=== PATIENT | female | born 1970 | race Caucasian/White ===

== ENCOUNTER 2021-02-15 10:25 | Emergency (ER) | payer OTHER ==
[~2021-02-15] VITALS: Ht 147.3 cm; Wt 118.4 kg
[~2021-02-15 10:25] MED LIST: AMLODIPINE BESYL5 MG PO; ASPIR-LOW81 MG PO; KEFLEX500 MG PO; LISINOPRIL10 MG PO; SPIRONOLACTONE50 MG
[2021-02-15] MEDS ORDERED: MAGNESIUM OXID400 M1 PO (11:01)
[2021-02-15] MEDS ORDERED: BACTRIM DS TAB1 EACH PO (14:03)
--- NOTE | 2021-02-15 15:56 | EKG ---
[facility] [address] [facility] [place], [place] [address] Signed Normal sinus rhythm Normal ECG Confirmed by DEJUAN DALY MD ([id number]) on 02/15/2021 3:56:25 PM Electronically Signed By: DEJUAN DALY MD 02/15/21 1556 PATIENT NAME: AHN BETINA BOJORQUEZ Electrocardiogram DATE OF : 68 PHYSICIAN: DEJUAN DALY MD REPORT #: [id number] REPORT IS CONFIDENTIAL AND NOT TO BE RELEASED WITHOUT AUTHORIZATION
== END 2021-02-15 14:19 | disposition home or self-care (01) ==
LOC: ED 10:25
DX: G43.809 Other migraine, not intractable, without status migrainosus (principal); N39.0 Urinary tract infection, site not specified; I12.9 Hypertensive chronic kidney disease with stage 1 through stage 4 chronic kidney disease, or unspecified chronic kidney disease; N18.30 Chronic kidney disease, stage 3 unspecified; Z88.5 Allergy status to narcotic agent; Z91.018 Allergy to other foods; Z79.899 Other long term (current) drug therapy
CPT/HCPCS: 70450; 71045; 80053; 81001; 84484; 85025; 87077; 87088; 87186; 93005; 93010; 96374; 96375; 99284-25; J0780; J1200; J7030

== ENCOUNTER 2023-05-08 01:25 | Emergency (ER) | payer OTHER ==
[~2023-05-08] VITALS: Ht 147.3 cm; Wt 118.4 kg
[~2023-05-08 01:25] MED LIST changes: +BACTRIM DS TAB1 EACH PO; +MAGNESIUM OXID400 M1 PO
[2023-05-08 02:21] LABS: HEMATOCRIT 41.9 % (35.0-50.0); HEMOGLOBIN 13.5 g/dL (12.0-18.0); MCH 27.1 (27-36); MCHC 32.2 g/dl (30-36); MCV 84.3 fl (81-99); PLATELET COUNT 237 K/uL (140-440); RBC 4.97 M/ul (4.3-5.7); RDW 15.1 (10.5-15.0)
[2023-05-08 02:41] LABS: BANDS, MANUAL DIFF 23; EOSINOPHILS, MANUAL DIFF 1; LYMPHOCYTES, MANUAL DIFF 34; MONOCYTES, MANUAL DIFF 1; NEUTROPHILS, MANUAL DIFF 41
[2023-05-08 02:43] LABS: ALBUMIN 3.1 g/dL (3.4-5.0); ALBUMIN/GLOBULIN RATIO 0.76 (1.1-2.4); ANION GAP 22.2 (7-21); BILIRUBIN, TOTAL 1.2 ng/dL (0.2-1.0); BUN/CREATININE RATIO 14.63 (6.0-28.6); CALCIUM 8.6 mg/dL (8.5-10.1); CREATININE, SERUM 1.64 mg/dL (0.55-1.02); MAGNESIUM 1.7 mg/dL (1.8-2.4); POTASSIUM 3.2 mmol/L (3.5-5.1); PROTEIN, TOTAL 7.2 g/dL (6.4-8.2)
[2023-05-08 03:09] LABS: BASE EXCESS, BLOOD GAS -1.2 mmol/L (-2-2); HCO3, BLOOD GAS 23.8 mmol/L (22-26); O2 SATURATION, BLOOD GAS 98.1 % (95.0-100.0); PH, BLOOD GAS 7.38 (7.35-7.45); PO2, BLOOD GAS 97 mmHg (80-100)
[2023-05-08 03:10] LABS: OXYGEN RECEIVED, BLOOD GAS NOT STATED
[2023-05-08 03:33] LABS: BASE EXCESS, BLOOD GAS -1.3 mmol/L (-2-2); HCO3, BLOOD GAS 23.5 mmol/L (22-26); O2 SATURATION, BLOOD GAS 98.9 % (95.0-100.0); OXYGEN RECEIVED, BLOOD GAS NOT STATED; PCO2, BLOOD GAS 39.1 mmHg (35-45); PH, BLOOD GAS 7.39 (7.35-7.45); PO2, BLOOD GAS 108 mmHg (80-100); TOTAL CO2, BLOOD GAS 24.7
[2023-05-08 03:53] LABS: BILIRUBIN, URINE NEGATIVE (negative); BLOOD/HGB, URINE MODERATE (Negative); KETONE, URINE NEGATIVE (Negative); LEUK ESTERASE, URINE NEGATIVE (negative); NITRITE, URINE NEGATIVE (negative)
[2023-05-08 04:00] LABS: EPITHELIAL CELLS, URINE SQUAMOUS 1+ /lpf (0-1+)
[2023-05-08 04:01] LABS: BACTERIA, URINE 3+ /hpf (negative); CRYSTALS, URINE NONE SEEN (0-1+); RED BLOOD CELLS, URINE >50 /hpf (0-5)
[2023-05-08 04:02] LABS: CASTS, URINE NONE SEEN \\lpf; REFLEX CULTURE, URINE No (No)
[2023-05-08 07:25] VITALS: BP 102/78
--- NOTE | 2023-05-09 08:01 | EKG ---
[facility] [address] [facility] [place] [address] Signed Undetermined rhythm Left ventricular hypertrophy with repolarization abnormality ( [place] product ) Abnormal ECG When compared with ECG of 15-FEB-2021 11:26, Current undetermined rhythm precludes rhythm comparison, needs review QRS duration has increased ST now depressed in Inferior leads ST now depressed in Lateral leads T wave inversion now evident in Inferior leads T wave inversion now evident in Lateral leads Confirmed by TAMANNA COLMENARES MD ([id number]) on 05/09/2023 8:01:35 AM Electronically Signed By: TAMANNA COLMENARES 05/09/23 0801 PATIENT NAME: BETINA VELEZ Electrocardiogram DATE OF : 68 PHYSICIAN: TAMANNA COLMENARES REPORT #: [id number] REPORT IS CONFIDENTIAL AND NOT TO BE RELEASED WITHOUT AUTHORIZATION
== END 2023-05-08 07:25 | disposition short-term general hospital (02) ==
LOC: ED 01:25
PROVIDERS: Internal Medicine
DX: I46.9 Cardiac arrest, cause unspecified (principal); I12.9 Hypertensive chronic kidney disease with stage 1 through stage 4 chronic kidney disease, or unspecified chronic kidney disease; N18.30 Chronic kidney disease, stage 3 unspecified; Z91.018 Allergy to other foods; Z88.5 Allergy status to narcotic agent; Z79.899 Other long term (current) drug therapy; Z20.822 Contact with and (suspected) exposure to COVID-19
CPT/HCPCS: 36415; 36600; 70450; 71045; 80053; 81001; 82803; 83605; 83735; 84484; 85025; 85379; 85610; 85730; 87040; 93005; 93010; 94002; C9113; J0696; J2704; J2930; J3010; J3475; J3480; U0002

== ENCOUNTER 2025-05-15 05:30 | Day surgery (SDC) | payer OTHER ==
[~2025-05-15] VITALS: Ht 147.3 cm; Wt 119.0 kg
[~2025-05-15 05:30] MED LIST changes: +DAPAGLIFLOZIN10 MG PO; +ENDOCET 5-3251 EACH PO; +ENTRESTO 97 MG1 EACH PO; +INDAPAMIDE1.25 MG PO; +LACTATED RINGER'S 1,000 ML IV SCH; +ONDANSETRON ODT8 MG PO; +SPIRONOLACTONE25 MG PO; +TRAMADOL HCL50 MG PO
[2025-05-15 06:05] VITALS: BP 143/88
[2025-05-15] MEDS ORDERED: MIDAZOLAM HCL 2 MG/2 ML VIAL ONE (06:12)
[2025-05-15] MEDS ORDERED: CEFAZOLIN SODIUM 2 GM/20 ML SYR IV SCH (07:00)
[2025-05-15] MEDS ORDERED: LIDOCAINE HCL 1% 5 ML SDV INJ ONE (07:00)
[2025-05-15] MEDS ORDERED: IBLOOD GLUCOSE TEST STRIP 1 EA TEST VI PRN (07:00)
[2025-05-15] MEDS ORDERED: TRANEXAMIC ACID IN NACL,ISO-OS 1,000 MG/100 ML PIGGYBACK IV SCH (07:00)
[2025-05-15 07:21] LABS: GLOMERULAR FILTRATION RATE,EST 41.0 mL/min (>60); UREA NITROGEN 28.0 mg/dL (7-18)
--- NOTE | 2025-05-15 07:28 | NUR ---
0725- RECIEVED RESULTS FOR REPEAT LABS REQUESTED BY BAUTISTA DUE TO POTASSIUM OF 3.2 (L). REPEAT LAB DRAWN THIS MORNING SHOWED POTASSIUM 3.4 AND GFR 41. AND MYKEL MADE AWARE.
[2025-05-15] MEDS ORDERED: TRAMADOL HCL 50 MG TAB PO PRN (08:00)
[2025-05-15] MEDS ORDERED: Ropivacaine HCl 0.5% 30 ML VIAL ONE (08:38)
[2025-05-15] MEDS ORDERED: DULOXETINE HCL 30 MG CAP PO SCH (09:00)
[2025-05-15] MEDS ORDERED: ACETAMINOPHEN 1,000 MG/100 ML VIAL IV PRN (09:45)
[2025-05-15] MEDS ORDERED: TRAMADOL HCL50 MG PO (09:51)
--- NOTE | 2025-05-15 09:58 | NUR ---
05/15/25 0958 Sushila Wood 0946: PT ARRIVES TO PACU WITH ORAL AIRWAY IN PLACE. SHE IS NON AROUSAL TO STIMULI. REPROT RECIEVED FROM SUMMER COUNSELOR AND WINDOW CUTTER. [place] 0952: PT AROUSES ENOUGH TO REMOVAL ORAL AIRWAY.
[2025-05-15 10:36] VITALS: BP 108/75
--- NOTE | 2025-05-15 10:44 | NUR ---
1033- REVIEVED REPORT FROM [facility]. PT RECIEVED 900ML FLUIDS, 100 EBL. NO PAIN MEDS GIVEN IN PACU. PT DID NOT REPORT PAIN IN PACU. ICE MAN PACK IN PLACE ON ARM. 1040- PT HAS HAD NO COMPLAINT OF PAIN, NAUSEA, OR DIFFICULTY BREATHING. VITALS NOTED. ASSESSED SURGICAL SITE AND IS NOTED. ICE MAN REAPPLIED AFTER ASSESSMENT OF SITE. NUMBNESS IN RIGHT ARM DUE TO NERVE BLOCK FOR PAIN MANAGEMENT. PT UNABLE TO FEEL SENSATION AND HAS NO MOBILITY OF R ARM UPON ASSESSMENT. 1050- PT BROUGHT SNACKS, WATER, AND IN POSITON OF COMFORT. DISCUSSED REQUIREMENTS OF DC AND PT VERBALIED UNDERSTANDING. CALL LIGHT IN REACH, SIDE RAILS UP. PT INFORMED TO CALL FOR ASSISTANCE WHEN READY TO URINATE OR ANY OTHER NEEDS.
[2025-05-15] MEDS ORDERED: NALOXONE HCL 0.4 MG SYR IV PRN (11:30)
[2025-05-15 12:00] VITALS: BP 131/56
--- NOTE | 2025-05-15 12:01 | NUR ---
1150- PT IN POSTION OF COMFORT WITHOUT ANY COMPLAINTS AT THIS TIME. DRESSING WAS VISUALLY ASSESSED, CLEAN DRY, INTACT. ICE MAN STILL ATTACHED TO PT ARM AND TOLLERATING WELL. PAIN MED GIVEN PER PT REQUEST, SEE EMAR. DISCHARGE INFORMATION REVIEWED AND ASKED PT IF READY TO TRY TO URINATE.
[2025-05-15] MEDS ORDERED: DULOXETINE HCL 30 MG CAP PO ONE (12:45)
[2025-05-15 12:48] VITALS: BP 11/58
--- NOTE | 2025-05-15 12:58 | NUR ---
1238- CONTACTED [facility] FOR CLARIFICATION ON CYMBALTA. MISSED DOSE PER EMAR DUE TO PT BEING AWAY FROM DS. DOSE GIVEN PER ORDERS AND CLINIC SENT PRESCRIPTION TO PHARMACY- PER [facility]ARTINE PLAZA. 1240- PT SITTING UP EATING JELLO. DENIES NEED TO VOID. NEW MED GIVEN PER EMAR, PT EDUCATION PROVIDED. PT IN POSTION OF COMFORT, WARM BLANKETS PROVIDED PER REQUEST, CALL LIGHT IN REACH.
[2025-05-15 13:40] VITALS: BP 124/69
--- NOTE | 2025-05-15 14:05 | NUR ---
1320- PT IS UP WITH ANOTHER NURSE TO VOID. PT IS ABLE TO VOID 400ML OF URINE AND RETURNS TO ROOM WITH NO ISSUES. 1356- VITAL SIGNS OBTAINED. CRYOCUFF IS FILLED WITH ICE. IV REMOVED. ALL QUESTIONS AND CONCERNS ANSWERED. PT IS ASSISTED IN GETTING DRESSED AND PUTTING ARM IN SLING. MOTHER OF PT HAS ALL BELONGINGS. PT IS ABLE TO AMBULATE TO WHEELCHAIR WITH NO ISSUES. PT DC'S FROM DAY SURGERY IN WHEELCHAIR AND IS ABLE TO TRANSFER TO FAMILY VEHICLE WITH NO ISSUES.
--- NOTE | 2025-05-16 10:34 | OR ---
[facility] [address] [place], [place] [address] Signed DATE OF OPERATION: 05/15/2025 SURGEON: Aylin Voss MD PREOPERATIVE DIAGNOSIS: Displaced right proximal humerus fracture, three part. POSTOPERATIVE DIAGNOSIS: Displaced right proximal humerus fracture, three part. PROCEDURE PERFORMED: Open reduction and internal fixation, right proximal humerus. DOCUMENT IMAGING SPECIALIST: Jerri Browning PA-C. Jerri was present and critical for all portions of procedure. ANESTHESIA: General. BLOOD LOSS: 100 mL. IMPLANTS: Matt DVR proximal humerus plate with eight screws. BRIEF HISTORY: Cheryl is a 54-year-old female, who suffered a ground level fall fracturing her shoulder with valgus impacted fracture. This displaced primarily in the greater tuberosity. Risks and benefits of operative treatment were discussed with her and she elected to proceed. DESCRIPTION OF PROCEDURE: Once consent was obtained, she was taken to the operating room. After adequate anesthesia, she was placed in a low beach chair position. All downside pressure points were well padded. The shoulder was approached through standard anterior deltopectoral approach. The skin incision was carried through skin and subcutaneous tissue and down to the cephalic vein. It was readily identifiable and was retracted and protected laterally. The deltopectoral interval was opened and the clavipectoral fascia was transected. This allowed good visualization of the proximal humerus. The fracture was Electronically Signed By: AYLIN VOSS MD 05/16/25 1034 PATIENT NAME: JIMY JASONNADYA CHERYL HARRISON OPERATIVE REPORT DATE OF : 68 REPORT #: [id number] PHYSICIAN: AYLIN VOSS MD PCP: ELISE GOSS NP REPORT IS CONFIDENTIAL AND NOT TO BE RELEASED WITHOUT AUTHORIZATION [facility] [address] [place], [place] [address] Signed identified and cleared of soft tissue. There was a large defect posteriorly in the midportion of the tuberosity. The tuberosity was carefully mobilized from surrounding soft tissue and callus. It was then reduced back into position after elevating the head back into more varus. The tuberosity was settled underneath it and held with a tenaculum. This was checked using image intensifier and found to be satisfactory. The DVR plate was then placed on the lateral aspect of the humerus about a centimeter inferior to the rotator cuff. This was held in position with the central screw distally. Position was then adjusted and multiple screws were placed into the head including the calcar. Another screw was then placed for the distal and the plate. The shoulder was then moved under image intensifier and the fracture was stable. We did suture the rotator cuff and all tuberosities back to the plate with #2 FiberWire. The wound was then copiously irrigated with normal saline. The deltopectoral interval was closed using 0 Vicryl, the subcutaneous tissue with 2-0 Stratafix and the skin with kiersten. Wound was dressed with an Acticoat-7 dressing. She tolerated the procedure well. All sponge, needle, and instrument counts were correct. Aylin Voss MD BA/MODL /[id number] Copies: ~ Electronically Signed By: AYLIN VOSS MD 05/16/25 1034 PATIENT NAME: JIMY KAUFMAN HUNTERCHERYL R OPERATIVE REPORT DATE OF : 68 REPORT #: [id number] PHYSICIAN: AYLIN VOSS MD PCP: ELISE GOSS NP REPORT IS CONFIDENTIAL AND NOT TO BE RELEASED WITHOUT AUTHORIZATION
== END 2025-05-15 13:56 | disposition home or self-care (01) ==
LOC: DS 05:30
PROVIDERS: Nurse Anesthetist, Certified Registered; ATTEND Specialist
PROC: 0PSF04Z Reposition Right Humeral Shaft with Internal Fixation Device, Open Approach (ICD-10-PCS; principal; 2025-05-15 07:00)
DX: S42.231A 3-part fracture of surgical neck of right humerus, initial encounter for closed fracture (principal); W18.30XA Fall on same level, unspecified, initial encounter; I12.9 Hypertensive chronic kidney disease with stage 1 through stage 4 chronic kidney disease, or unspecified chronic kidney disease; N18.30 Chronic kidney disease, stage 3 unspecified; M06.9 Rheumatoid arthritis, unspecified; E66.9 Obesity, unspecified; Z68.43 Body mass index [BMI] 50.0-59.9, adult; Z90.49 Acquired absence of other specified parts of digestive tract
CPT/HCPCS: 01630; 36415; 64415; 73060; 80048; C1713; J0690; J2250; J2704; J2795; J7121